=== PATIENT | female | born 1995 | race African-American/Black ===

== ENCOUNTER 2016-08-21 10:49 | Outpatient (CLI) | payer BC ==
--- NOTE | 2016-08-21 21:05 | ULT ---
RIGHT BREAST ULTRASOUND 08/21/16 Ultrasonography of the right breast was performed around the 4 o'clock region where a palpable abnor mality was present. No mass, cyst or dilated duct was seen. The best one could say is that the breast parenchyma in the area in question is maybe slightly more echogenic than usual, but there is no focal finding. This po tentially could be see in inflammatory conditions. It should be noted that this essentially negative ultrasound should not dissuade one from further workup if a palpably suspicious abnormality is pres ent, since ultrasound cannot show all lesions. IMPRESSION: No definite acute findings. At most, perhaps some slight increase in parenchymal density without any focal findings. POS: HOME
== END 2016-08-21 10:50 | disposition home or self-care (01) ==
LOC: BURULT 10:49
PROVIDERS: ATTEND Physician Assistant
DX: N63 Unspecified lump in breast (principal)

== ENCOUNTER 2016-08-28 08:51 | Outpatient (CLI) | payer BC ==
[2016-08-28 10:18] LABS: #Basophils 0.1 thou/uL (0.0-0.2); #Eosinphils 0.2 thou/uL (0.0-0.7); #Lymphocytes 2.1 thou/uL (1.20-3.40); #Monocytes 0.5 thou/uL (0.11-0.59); #Neutrophils 2.8 thou/uL (1.40-6.50); %Basophils 1.4 % (0.0-1.0); %Eosinophils 2.8 % (0.0-10.0); Mean Platelet Volume 6.4 fL (7.4-10.4); Red Blood Cell (RBC) Count 4.15 mill/uL (4.20-5.40); White Blood Cell (WBC) Count 5.7 thou/uL (4.8-10.8)
[2016-08-28 10:20] LABS: ALT (SGPT) 14 U/L (0-55); AST (SGOT) 17 U/L (5-34); Alkaline Phosphatase 50 U/L (40-150); Anion Gap 13 mmol/L (10-20); BUN (Urea Nitrogen) 9 mg/dL (7.0-18.7); Bilirubin, Total 0.7 mg/dL (0.2-1.2); Calc. Creatinine Clearance 0 mL/min (70-130); Calcium 9.4 mg/dL (7.8-10.44); Carbon Dioxide 25 mmol/L (22-29); Chloride 107 mmol/L (98-107); Estimated GFR-MDRD Greater than 90; Globulin 3.3 g/dL (2.4-3.5); LDL Cholesterol, Calculated 98 mg/dL; Protein, Total 7.4 g/dL (6.0-8.3)
== END 2016-08-28 08:52 | disposition home or self-care (01) ==
LOC: HPCALD 08:51
PROVIDERS: ATTEND Physician Assistant
DX: Z00.01 Encounter for general adult medical examination with abnormal findings (principal)
CPT/HCPCS: 36415; 80053; 80061; 84443; 85025

== ENCOUNTER 2016-11-02 16:54 | Outpatient (CLI) | payer BC | END 2016-11-02 16:55 | disposition home or self-care (01) | LOC: HPCALD 16:54 | PROVIDERS: ATTEND Physician Assistant | DX: L02.412 Cutaneous abscess of left axilla (principal) | CPT/HCPCS: 87070; 87205 ==

== ENCOUNTER 2016-11-10 09:46 | Outpatient (CLI) | payer BC ==
[2016-11-10 15:53] LABS: ALT (SGPT) 14 U/L (8-55); AST (SGOT) 18 U/L (5-34); Albumin 4.1 g/dL (3.5-5.0); Alkaline Phosphatase 52 U/L (40-150); Anion Gap 13 mmol/L (10-20); BUN (Urea Nitrogen) 10 mg/dL (7.0-18.7); Bilirubin, Total 0.7 mg/dL (0.2-1.2); Calc. Creatinine Clearance 0 mL/min (70-130); Calcium 8.8 mg/dL (7.8-10.44); Carbon Dioxide 24 mmol/L (22-29); Chloride 108 mmol/L (98-107); Estimated GFR-MDRD Greater than 90; Glucose 82 mg/dL (70-105); Lipase 15 U/L (8-78); Potassium 3.5 mmol/L (3.5-5.1); Protein, Total 7.1 g/dL (6.0-8.3); Sodium 141 mmol/L (136-145)
== END 2016-11-10 09:47 | disposition home or self-care (01) ==
LOC: HPCALD 09:46
PROVIDERS: ATTEND Physician Assistant
DX: R10.13 Epigastric pain (principal)
CPT/HCPCS: 36415; 80053; 83690; 86677

== ENCOUNTER 2017-07-28 08:20 | Outpatient (CLI) | payer BC, OTHER ==
--- NOTE | 2017-07-28 21:26 | ULT ---
ABDOMINAL ULTRASOUND: 07/28/17 Ultrasonography of the abdomen was performed for evaluation of abdominal pain. The liver, spleen and pancreas all appear normal. No space occupying disease was seen in the organ. T here are no dilated ducts in the liver. The hepatic size is normal. The gallbladder contains no stone s or wall thickening. The common bile duct is a normal 4 mm in caliber. The aorta and inferior vena c yordan are normal in size. The kidneys showed no focal findings of concern. The right kidney was 8.9 cm long and the left kidney was 8.6 cm. IMPRESSION: No significant abdominal findings. POS: HOME
== END 2017-07-28 08:21 | disposition home or self-care (01) ==
LOC: BURULT 08:20
PROVIDERS: ATTEND Physician Assistant
DX: R10.84 Generalized abdominal pain (principal)
CPT/HCPCS: 76700